=== PATIENT | female | born 1960 | race Two or more races ===

== ENCOUNTER → 2022-06-13 | Outpatient (CLI) | payer MEDICARE, OTHER ==
[2022-06-13 11:20] LABS: Basophils # (auto) 0 10 ^3/uL (0-0.2); Basophils % (auto) 0.7 % (0.0-2.0); Eosinophils # (auto) 0.1 10 ^3/uL (0-0.8); Hematocrit 40.8 % (36.0-46.0); Hemoglobin 12.6 g/dL (12.2-16.2); Lymphocytes # (auto) 1.8 10 ^3/uL (0.4-5.4); Mean Corpuscular Hemoglobin 28.6 pg (28.0-32.0); Mean Corpuscular Volume 92.2 fL (80.0-100.0); Monocytes # (auto) 0.7 10 ^3/uL (0-1.3); Monocytes % (auto) 9.5 % (0.0-12.0); Neutrophils # (auto) 4.4 10 ^3/uL (1.6-8.6); Neutrophils % (auto) 62.8 % (37.0-80.0); Nucleated Red Blood Cells % 0.1 %; Red Blood Cells 4.43 10^6/uL (4.0-5.20); Red Cell Distribution Width 12.8 % (11.8-14.3); White Blood Cell 6.9 10^3/uL (4.4-10.8)
[2022-06-13 11:35] LABS: Urine Bacteria FEW /hpf (None Seen); Urine Blood Negative /uL (Negative); Urine Specific Gravity 1.015 (1.001-1.035); Urine WBC 32 /hpf (0 - 5); Urine WBC Clumps PRESENT /hpf (None Seen)
[2022-06-13 11:53] LABS: Albumin 3.1 g/dL (3.4-5.0); Calcium 9.1 mg/dL (8.5-10.1); Potassium 4.3 mmol/L (3.5-5.1)
[2022-06-13 11:58] LABS: Bilirubin, Total 0.6 mg/dL (0.2-1.0); Total Protein 8.4 g/dL (6.4-8.2)
[2022-06-13 12:03] LABS: BUN/Creatinine Ratio 14.2
== END | disposition home or self-care (01) ==
LOC: LAB 10:42
PROVIDERS: ATTEND Internal Medicine
DX: Z12.11 Encounter for screening for malignant neoplasm of colon (principal); I10 Essential (primary) hypertension; E66.9 Obesity, unspecified
CPT/HCPCS: 36415; 80053; 80061; 81001; 83036; 85025

== ENCOUNTER → 2022-07-10 | Outpatient (CLI) | payer OTHER ==
[2022-07-10 10:42] LABS: Basophils # (auto) 0.1 10 ^3/uL (0-0.2); Basophils % (auto) 0.9 % (0.0-2.0); Eosinophils # (auto) 0.2 10 ^3/uL (0-0.8); Eosinophils % (auto) 2.7 % (0.0-7.0); Hematocrit 40.7 % (36.0-46.0); Hemoglobin 12.6 g/dL (12.2-16.2); Lymphocytes # (auto) 1.7 10 ^3/uL (0.4-5.4); Lymphocytes % (auto) 24.9 % (10.0-50.0); Mean Corpuscular Hemoglobin 28.8 pg (28.0-32.0); Mean Corpuscular Hgb Conc. 31.1 g/dL (32.0-36.0); Mean Corpuscular Volume 92.7 fL (80.0-100.0); Monocytes # (auto) 0.6 10 ^3/uL (0-1.3); Monocytes % (auto) 9.3 % (0.0-12.0); Neutrophils # (auto) 4.3 10 ^3/uL (1.6-8.6); Neutrophils % (auto) 62.2 % (37.0-80.0); Nucleated Red Blood Cells % 0.1 %; Red Blood Cells 4.39 10^6/uL (4.0-5.20); Red Cell Distribution Width 12.4 % (11.8-14.3); White Blood Cell 6.9 10^3/uL (4.4-10.8)
[2022-07-10 11:01] LABS: Calcium 9.2 mg/dL (8.5-10.1)
[2022-07-10 11:05] LABS: Albumin 3.3 g/dL (3.4-5.0); BUN/Creatinine Ratio 11.3; Bilirubin, Total 0.6 mg/dL (0.2-1.0); Total Protein 7.6 g/dL (6.4-8.2)
[2022-07-10 11:15] LABS: Partial Thromboplastin Time 27.1 sec (24.6-33.4)
[2022-07-10 12:15] LABS: Reticulocyte % (auto) 1.81 % (0.5-1.5)
== END | disposition home or self-care (01) ==
LOC: LAB 10:00
PROVIDERS: ATTEND Internal Medicine
DX: K92.2 Gastrointestinal hemorrhage, unspecified (principal); N39.0 Urinary tract infection, site not specified; M12.30 Palindromic rheumatism, unspecified site
CPT/HCPCS: 36415; 80053; 83880; 84443; 85025; 85045; 85610; 85730

== ENCOUNTER → 2023-04-08 | Outpatient (CLI) | payer OTHER ==
[~2023-04-08] MED LIST: ATEN-60 PO; TRIA75TA55 PO
[2023-04-08 15:32] LABS: Potassium 3.9 mmol/L (3.5-5.1)
[2023-04-08 15:38] LABS: BUN/Creatinine Ratio 13.9 (10.0-20.0); Calcium 8.9 mg/dL (8.5-10.1)
[2023-04-08 15:40] LABS: Bilirubin, Total 0.4 mg/dL (0.2-1.0)
== END | disposition home or self-care (01) ==
LOC: LAB 13:37
PROVIDERS: ATTEND Internal Medicine
DX: N18.30 Chronic kidney disease, stage 3 unspecified (principal)
CPT/HCPCS: 36415; 80053

== ENCOUNTER 2023-09-06 12:23 | Emergency (ER) | payer OTHER ==
[~2023-09-06] VITALS: Ht 162.6 cm; Wt 87.2 kg
[2023-09-06 15:36] VITALS: BP 153/94; PULSE 71; RESP 18; TEMP 97.8; O2SAT 99
[2023-09-06] MEDS ORDERED: HYDROcodone-ACET 5/325MG TAB PO ONE (15:45)
[2023-09-06] MEDS ORDERED: HYDR-4902 PO (16:50)
== END 2023-09-06 16:51 | disposition home or self-care (01) ==
LOC: ER 12:23
DX: S62.314A Displaced fracture of base of fourth metacarpal bone, right hand, initial encounter for closed fracture (principal); Z88.0 Allergy status to penicillin; Z88.6 Allergy status to analgesic agent; W18.09XA Striking against other object with subsequent fall, initial encounter; Y93.89 Activity, other specified; Y92.89 Other specified places as the place of occurrence of the external cause; Y99.8 Other external cause status
CPT/HCPCS: 29125; 73130

== ENCOUNTER → 2023-09-16 | Outpatient (CLI) | payer OTHER ==
[~2023-09-16] MED LIST changes: +HYDR-4902 PO
[2023-09-16 15:35] LABS: Basophils # (auto) 0 10 ^3/uL (0-0.2); Basophils % (auto) 0.5 % (0.0-2.0); Eosinophils # (auto) 0.2 10 ^3/uL (0-0.8); Eosinophils % (auto) 1.7 % (0.0-7.0); Hematocrit 40.4 % (36.0-46.0); Lymphocytes # (auto) 2.8 10 ^3/uL (0.4-5.4); Lymphocytes % (auto) 29.3 % (10.0-50.0); Mean Corpuscular Hemoglobin 29.3 pg (28.0-32.0); Mean Corpuscular Hgb Conc. 32.2 g/dL (32.0-36.0); Mean Corpuscular Volume 91.1 fL (80.0-100.0); Monocytes # (auto) 0.9 10 ^3/uL (0-1.3); Monocytes % (auto) 9.1 % (0.0-12.0); Neutrophils # (auto) 5.6 10 ^3/uL (1.6-8.6); Neutrophils % (auto) 59.4 % (37.0-80.0); Nucleated Red Blood Cells % 0.2 %; Red Blood Cells 4.43 10^6/uL (4.0-5.20); Red Cell Distribution Width 12.7 % (11.8-14.3); White Blood Cell 9.4 10^3/uL (4.4-10.8)
== END | disposition home or self-care (01) ==
LOC: LAB 15:13
PROVIDERS: ATTEND Internal Medicine
DX: R19.5 Other fecal abnormalities (principal)
CPT/HCPCS: 36415; 85025

== ENCOUNTER 2023-10-06 09:51 | Day surgery (SDC) | payer OTHER ==
[~2023-10-06] VITALS: Ht 162.6 cm; Wt 83.5 kg
[2023-10-06 07:35] LABS: Basophils # (auto) 0 10 ^3/uL (0-0.2); Basophils % (auto) 0.5 % (0.0-2.0); Eosinophils # (auto) 0.1 10 ^3/uL (0-0.8); Eosinophils % (auto) 2.5 % (0.0-7.0); Hematocrit 38.3 % (36.0-46.0); Hemoglobin 12.5 g/dL (12.2-16.2); Lymphocytes # (auto) 2.1 10 ^3/uL (0.4-5.4); Lymphocytes % (auto) 37.2 % (10.0-50.0); Mean Corpuscular Hemoglobin 29.9 pg (28.0-32.0); Mean Corpuscular Hgb Conc. 32.7 g/dL (32.0-36.0); Mean Corpuscular Volume 91.2 fL (80.0-100.0); Monocytes # (auto) 0.8 10 ^3/uL (0-1.3); Monocytes % (auto) 13.3 % (0.0-12.0); Neutrophils # (auto) 2.6 10 ^3/uL (1.6-8.6); Neutrophils % (auto) 46.5 % (37.0-80.0); Nucleated Red Blood Cells % 0.1 %; Red Blood Cells 4.19 10^6/uL (4.0-5.20); Red Cell Distribution Width 12.9 % (11.8-14.3); White Blood Cell 5.7 10^3/uL (4.4-10.8)
[2023-10-06 08:08] LABS: Alanine Aminotransferase 35 U/L (7-40); Albumin 3.6 g/dL (3.2-4.8); Alkaline Phosphatase 107 U/L (46-116); Anion Gap 9 (5-15); Aspartate Aminotransferase 36 U/L (13-40); BUN/Creatinine Ratio 10.5 (10.0-20.0); Bilirubin, Total 0.8 mg/dL (0.2-1.0); Blood Urea Nitrogen 11 mg/dL (9-23); Calcium 9.3 mg/dL (8.5-10.1); Carbon Dioxide 29 mmol/L (20-30); Chloride 100 mmol/L (98-107); Glucose 96 mg/dL (74-106); Potassium 2.9 mmol/L (3.5-5.1); Sodium 138 mmol/L (136-145); Total Protein 9.8 g/dL (5.7-8.2)
[2023-10-06 08:40] LABS: INR 1.01 (0.9-1.15); Partial Thromboplastin Time 24.2 SEC (24.5-34.5); Prothrombin Time 10.8 sec (9.3-11.8)
[~2023-10-06 09:51] MED LIST changes: +diphenhdrAMINE HCL 50 MG/1 ML VL ONE
[2023-10-06] MEDS ORDERED: SOD CHL 0.9%/ KCL 20MEQ 1,000 ML IV SCH (11:00)
[2023-10-06] MEDS ORDERED: POTASSIUM CHLORIDE 20 MEQ, LIDOCAINE 1% (LOCAL ANESTH.) 2 ML in SODIUM CHL 0.9% 100 ML IV ONE (11:00)
[2023-10-06 11:48] VITALS: PULSE 82; RESP 15; O2SAT 100
[2023-10-06] MEDS ORDERED: MIDAZOLAM HCL 5 MG/ML-1ML VIAL IV ONE ×4 (11:51→12:07)
[2023-10-06] MEDS ORDERED: diphenhdrAMINE HCL 50 MG/1 ML VL IV ONE ×2 (11:51→11:55)
[2023-10-06] MEDS ORDERED: fentaNYL CITRATE 100 MCG/2 ML VL IV ONE ×3 (11:51→12:00)
[2023-10-06 12:18] VITALS: TEMP 98.3; O2SAT 100
[2023-10-06] MEDS ORDERED: MIDAZOLAM HCL 5 MG/ML-1ML VIAL ONE (13:40)
[2023-10-06] MEDS ORDERED: diphenhdrAMINE HCL 50 MG/1 ML VL ONE (13:40)
[2023-10-06] MEDS ORDERED: fentaNYL CITRATE 100 MCG/2 ML VL ONE (13:41)
[2023-10-06 15:03] VITALS: BP 166/89; PULSE 65; RESP 12; O2SAT 100
== END 2023-10-06 15:11 | disposition home or self-care (01) ==
LOC: GI 09:51
PROVIDERS: ATTEND Internal Medicine Gastroenterology
DX: R19.5 Other fecal abnormalities (principal); K92.1 Melena; K64.0 First degree hemorrhoids; Q43.8 Other specified congenital malformations of intestine; K66.0 Peritoneal adhesions (postprocedural) (postinfection); I10 Essential (primary) hypertension; Z86.010 Personal history of colon polyps; Z79.899 Other long term (current) drug therapy
CPT/HCPCS: 36415; 45378; 80053; 84132; 85025; 85610; 85730; J1200; J2001; J2250; J3010; J3480; J7030; 99152; 99153

== ENCOUNTER 2025-06-19 07:00 | Inpatient (IN) | payer MEDICARE, OTHER ==
[2025-06-16 10:01] LABS: Urine Protein, UAD Negative (Negative)
[2025-06-16 10:10] LABS: Hematocrit 34.1 % (36.0-46.0); Hemoglobin 11.4 g/dL (12.2-16.2); Mean Corpuscular Hemoglobin 33.5 pg (28.0-32.0); Mean Corpuscular Volume 100.6 fL (80.0-100.0); Nucleated Red Blood Cells % 0.2 %
[2025-06-16 10:11] LABS: INR 1.01 (0.9-1.15); Partial Thromboplastin Time 24.4 SEC (24.5-34.5); Prothrombin Time 10.7 sec (9.3-11.8)
[2025-06-16 10:28] LABS: Alanine Aminotransferase 18 U/L (7-40); Albumin 3.6 g/dL (3.2-4.8); Alkaline Phosphatase 103 U/L (46-116); Anion Gap 10 (5-15); BUN/Creatinine Ratio 9.8 (10.0-20.0); Bilirubin, Total 0.8 mg/dL (0.2-1.0); Blood Urea Nitrogen 12 mg/dL (9-23); Calcium 8.9 mg/dL (8.7-10.4); Carbon Dioxide 23 mmol/L (20-31); Chloride 99 mmol/L (98-107); Glucose 86 mg/dL (74-106)
[2025-06-16 10:41] LABS: Potassium 3.4 mmol/L (3.5-5.1); Sodium 132 mmol/L (136-145); Total Protein 10.2 g/dL (5.7-8.2)
[~2025-06-19] VITALS: Ht 162.6 cm; Wt 80.0 kg
[~2025-06-19 07:00] MED LIST changes: -HYDR-4902 PO; +PANT40TA2 PO; +TRAM50TA2 PO; -diphenhdrAMINE HCL 50 MG/1 ML VL ONE
[2025-06-19] MEDS: ACETAMINOPHEN IV 1000 MG/100ML (10MG/ML) IV ONE (09:00)
[2025-06-19] MEDS ORDERED: HYDROmorphone HCL 2 MG/ML VL/or syr IV PRN ×2 (09:30→10:15)
[2025-06-19] MEDS ORDERED: MORPHINE SULFATE 4 MG/ML SYR/VIAL IV PRN (09:30)
[2025-06-19] MEDS: PREGABALIN CAPSULE 75 MG CAP PO ONE (09:45)
[2025-06-19] MEDS: CELECOXIB 100 MG CAP PO ONE (09:45)
[2025-06-19] MEDS: ceFAZolin 1GM/50ML 50 ML IV SCH ×2 (09:58→18:38)
[2025-06-19] MEDS: CEFEPIME 1GM/50ML 50 ML IV ONE (10:03)
[2025-06-19] MEDS: TRANEXAMIC ACID 20 ML ONE (10:10)
[2025-06-19] MEDS ORDERED: MORPHINE SULFATE INJ 2 MG/ml SYRG IV PRN ×2 (10:11→12:00)
[2025-06-19] MEDS: LACTATED RINGER'S 1,000 ML IV SCH (10:15)
[2025-06-19] MEDS ORDERED: ONDANSETRON HCL 4 MG/2 ML VIAL IV PRN (10:15)
[2025-06-19] MEDS: BUPIVACAINE W/ EPINEPH 0.5% INJ 50ML MDV IJ ONE (10:51)
[2025-06-19] MEDS: KETOROLAC TROMETH 30 MG/ML 1ML VIAL IV ONE (10:51)
[2025-06-19] MEDS: MORPHINE SULF PF 5 MG/10 ML VIAL IV ONE (10:52)
[2025-06-19 11:42] VITALS: PULSE 80; RESP 15; O2SAT 98
[2025-06-19] MEDS ORDERED: NITROGLYCERIN 0.4 MG SL TAB SL PRN (12:00)
--- NOTE | 2025-06-19 12:19 | DVHOP2 ---
Operative Report - 2 Report Details Date: 06/19/25 Preop Diagnosis: Left hip avascular necrosis Postop Diagnosis: Left hip avascular necrosis Surgeon: Flako Richmond MD Software Lead: Chaka MURILLO Anesthesiologist: Zafar ORTIZ Anesthesia: Regional Implant: [employer] see implant log Consent: The patient was informed of the risks and benefits of the procedure. These include but are not limited to complications of anesthesia, postoperative infection, incomplete relief of symptoms, recurrence of symptoms, damage to blood vessels, nerves and tendons, deep venous thrombosis, pulmonary embolism and possible need for repeat surgery in the future. Estimated Blood Loss: 300 cc Name of Procedure Performed Left total hip arthroplasty, computer navigation Procedure Details Procedure Details: FINDINGS: Extensive degenerative disease with grade IV changes INDICATION: This patient has failed non-operative treatments for hip arthritis and is now indicated for a total hip replacement. Preoperatively in the waiting area as well as in the office, I had a long discussion with the patient regarding the plan, the expected outcome, the risks, benefits, and alternatives of surgery. The risks include, but are not limited to, infection (which may require future surgery and removal of implants) , bleeding (which may require a transfusion), damage to nerves, arteries, veins, tendons, muscles and other adjacent structures. Also discussed the possibilities of dislocation, leg-length discrepancy, intraoperative fractures, implant loosening, heterotopic bone formation, and revision for variety of reasons, and medical complications etc. This was discussed at length and consent has been obtained. DESCRIPTION OF PROCEDURE: In the preoperative holding area, the consent was reviewed and the appropriate extremity was verified by the patient and marked with my initials. The patient was then transferred to the operating theatre. Appropriate anesthetia was induced. All bony prominences were well padded. A time out was performed verifying the side and site of surgery according to standard protocol. Preoperative antibiotics were given. Tranexamic acid was given. The patient was then placed in the lateral decubitus position and fixed with rigid pelvic fixation. All bony prominences were well padded and an axillary roll was placed. The affected hip area was then prepped and draped in the usual sterile fashion. Using an 11-blade, three stab incisions were made over the iliac crest. Two threaded guide pins were inserted into the crest confirming to be in bone. The pelvic array was attached to the pins and tightened. We made a standard posterolateral incision sharply through the skin and carried our dissection down through subcutaneous tissue to the underlying fascia achieving hemostasis where necessary. We incised the fascia in line with our incision. We identified and protected the sciatic nerve. We took down the external rotators and hip capsule from their insertion into the greater troch anter, tagged them and retracted them posteriorly for further protection of the sciatic nerve. A check point was placed into the greater trochanter and the hip center and leg length length were registered. We then dislocated the femoral head and performed an osteotomy of the femoral neck in accordance with our pre-operative plan. The labrum was excised with a long-handle knife, and we exposed the acetabular rim and cotyloid fossa. We then reamed up to our final size in accordance with the preoperative plan. We copiously irrigated and then impacted the final cup into position. We confirmed the position with the robotic navigation guidance. We placed acetabular dome screws into the posterior-superior quadrant in the usual fashion. We irrigated the cup and impacted the liner, checking to make sure it was well seated. Attention was then turned to the femur. We used a box osteotome followed by a canal finder to gain entry to the canal. Intramedullary contents were suctioned and care was taken to ensure they did not touch the tissues. We sequentially reamed until good cortical contact, then broached up to out final size. We t rialed with the appropriate femoral neck and head and reduced the hip. The hip was taken through a full range of motion. The hip soft tissues were examined in extension and external rotation, the anterior capsule and IT band were palpated, and combined anteversion was determined to be 40 degrees. The hip was stable at maximum flexion, at 90 degrees of flexion and 45 degrees of internal rotation and the position of sleep. Leg lengths were restored as shown using the computer navigation, and the trial LTC matched preoperative and intraoperative templating. The hip was then dislocated and trial components removed. We copiously irri gated the wound and impacted the final femoral stem into position. The femoral head was impacted onto a clean and dry trunion and confirmed to be seated. The hip was reduced ensuring to tissues in the acetabular cup. We again brought it through a full functional range of motion and there was no evidence for dislocation, instability, or impingement. The checkpoint was removed. A dilute betadine solution (17.5mL in 500mL saline) was used to wash the joint and left to sit for 3 minutes. This was then irrigated out with copious amounts of pulse lavage. We sprinkled 1g vancomycin powder below the fascia and 1g above the fascia. We copiously irrigated the wound and soft tissues. The short external rotators and capsule were repaired to the greater trochanter through drill holes, and the quadratus was repaired. We palpated the sciatic nerve in continuity without tension. The fascia was closed with vicryl and a barbed suture. We closed over the fascia with vicryl suture and re-approximated the skin with {Sutures/claudette:02220}. A sterile dressing was placed. We returned the patient to the supine position. We verified all lower extremity compartments were soft and compressible and that we had intact distal pulses and checked our leg length alevism. We took an AP Pelvis in the operating room, which we reviewed prior to transfer. The patient was then transferred to the recovery room in stable condition. Condition Good Disposition Still a Patient FLAKO RICHMOND MD Jun 19, 2025 12:19
--- NOTE | 2025-06-19 12:23 | DVHINCON2 ---
Date Seen: Jun 19, [address] RICHMOND Allergies: Coded Allergies: Penicillins (Unverified Allergy, Intermediate, rash, swollen lip, 01/29/23) Aspirin (Unverified Adverse Reaction, Mild, N/V, 01/29/23) Ibuprofen (Unverified Adverse Reaction, Mild, N/V, abd pain, 01/29/23) Home Meds Reported Medications Pantoprazole Sodium Sesquihydr (Protonix) 40 Mg Tab, 40 MG PO DAILY, #30 TAB 06/14/25 Tramadol Hcl (Tramadol Hcl) 50 Mg Tab, 50 MG PO Q6HP PRN for prn, TAB 06/14/25 Triamterene & Hydrochlorothiaz (Maxzide) 1 Tab Tab, 1 TAB PO DAILY, TAB 01/29/23 Atenolol (Atenolol) 25 Mg Tab, 50 MG PO BID, TAB 01/29/23 Current Medications Current Medications Medications (Trade) Dose Ordered Sig/Chiki Route PRN Reason Start Time Stop Time Status Last Admin Metoclopramide HCl (Reglan Injection) 10 mg ONCE PRN IV NAUSEA / VOMITING 06/19/25 09:30 06/19/25 10:02 DC Hydromorphone HCl (Dilaudid Injection) 0.5 mg Q10M PRN IV SEVERE PAIN (7-10 PAIN SCALE) 06/19/25 09:30 06/19/25 10:11 DC Morphine Sulfate 2 mg Q4H PRN IV BREAKTHRU PAIN SCALE 7-10 06/19/25 09:30 06/19/25 13:31 Hydromorphone HCl (Dilaudid Injection) 0.25 mg Q10M PRN IV MODERATE PAIN (4-6 PAIN SCALE) 06/19/25 09:30 06/19/25 10:02 DC Morphine Sulfate 1 mg Q30M PRN IV SEVERE PAIN (7-10 PAIN SCALE) 06/19/25 10:11 06/19/25 12:12 DC Atenolol (Tenormin Tablet) 50 mg BID PO 06/19/25 22:00 Pantoprazole Sodium (Protonix Tablet) 40 mg DAILY PO 06/20/25 10:00 Triamterene/HCTZ (Dyazide 37.5/ 25MG Capsule) 1 cap DAILY PO 06/20/25 10:00 Lactated Ringer's 1,000 ml @ 100 mls/hr Q10H IV 06/19/25 10:15 Sodium Chloride (Saline Lock Ns) 10 ml Q8HR IV 06/19/25 14:00 Cefazolin Sodium 50 ml @ 50 mls/hr Q6H IV 06/19/25 10:15 06/19/25 11:48 DC 06/19/25 09:58 Acetaminophen/ Hydrocodone Bitart ([place] 5/325MG Tab) 1 tab Q4HP PRN PO MODERATE PAIN (4-6 PAIN SCALE) 06/19/25 10:15 Hydromorphone HCl (Dilaudid Injection) 1 mg Q2HP PRN IV SEVERE PAIN (7-10 PAIN SCALE) 06/19/25 10:15 Ondansetron HCl (Zofran) 4 mg Q6HP PRN IV NAUSEA / VOMITING 06/19/25 10:15 Docusate Sodium (Colace Capsule) 100 mg Q12HR PO 06/19/25 22:00 Cefepime HCl 50 ml @ 12.5 mls/hr DAILY IV 06/20/25 10:00 Cefazolin Sodium 50 ml @ 50 mls/hr Q8H IV 06/19/25 18:00 06/20/25 02:59 Nitroglycerin (Ntrostat Sublingual) 0.4 mg Q5MINP PRN SL FOR CHEST PAIN 06/19/25 12:00 UNV Morphine Sulfate 2 mg Q30M PRN IV FOR CHEST PAIN 06/19/25 12:00 UNV Vital Signs Vital Signs Date Time Temp Pulse Resp B/P (MAP) Pulse Ox O2 Delivery O2 Flow Rate FiO2 06/19/25 07:19 97.7 88 20 144/94 (111) 100 97.7 Labs/Diagnostic Data Labs Test 06/16/25 08:35 Range/Units White Blood Count 5.9 4.4-10.8 10^3/uL Red Blood Count 3.39 L 4.0-5.20 10^6/uL Hemoglobin 11.4 L 12.2-16.2 g/dL Hematocrit 34.1 L 36.0-46.0 % Mean Corpuscular Volume 100.6 H 80.0-100.0 fL Mean Corpuscular Hemoglobin 33.5 H 28.0-32.0 pg Mean Corpuscular Hemoglobin Concent 33.3 32.0-36.0 g/dL Red Cell Distribution Width 16.7 H 11.8-14.3 % Platelet Count 250 140-450 10^3/uL Mean Platelet Volume 8.0 6.9-10.8 fL Neutrophils (%) (Auto) 69.2 37.0-80.0 % Lymphocytes (%) (Auto) 20.0 10.0-50.0 % Monocytes (%) (Auto) 8.4 0.0-12.0 % Eosinophils (%) (Auto) 2.0 0.0-7.0 % Basophils (%) (Auto) 0.4 0.0-2.0 % Neutrophils # (Auto) 4.1 1.6-8.6 10 ^3/uL Lymphocytes # (Auto) 1.2 0.4-5.4 10 ^3/uL Monocytes # (Auto) 0.5 0-1.3 10 ^3/uL Eosinophils # (Auto) 0.1 0-0.8 10 ^3/uL Basophils # (Auto) 0 0-0.2 10 ^3/uL Nucleated Red Blood Cells 0.2 % Prothrombin Time 10.7 9.3-11.8 sec Prothrombin Time INR 1.01 0.9-1.15 Activated Partial Thromboplast Time 24.4 L 24.5-34.5 SEC Urine Color Light-yellow Yellow Urine Clarity Clear Clear Urine pH 5.5 5.0-9.0 Urine Specific [place] 1.011 1.001-1.035 Urine Protein Negative Negative Urine Ketones Negative Negative Urine Blood Negative Negative /uL Urine Nitrite Negative Negative Urine Bilirubin Negative Negative Urine Urobilinogen Normal Negative mg/dL Urine Leukocyte Esterase Negative Negative /uL Urine RBC 1 0 - 4 /hpf Urine Microscopic WBC 1 0-5 /HPF Urine Squamous Epithelial Cells Few <5 /hpf Urine Bacteria None seen None Seen /hpf Urine Glucose Normal Normal mg/dL Sodium Level 132 L 136-145 mmol/L Potassium Level 3.4 L 3.5-5.1 mmol/L Chloride Level 99 98-107 mmol/L Carbon Dioxide Level 23 20-31 mmol/L Anion Gap 10 5-15 Blood Urea Nitrogen 12 9-23 mg/dL Creatinine 1.22 H 0.550-1.02 mg/dL Glomerular Filtration Rate Calc 50 >90 mL/min BUN/Creatinine Ratio 9.8 L 10.0-20.0 Serum Glucose 86 74-106 mg/dL Calcium Level 8.9 8.7-10.4 mg/dL Total Bilirubin 0.8 0.2-1.0 mg/dL Aspartate Amino Transferase (AST) 32 13-40 U/L Alanine Aminotransferase (ALT) 18 7-40 U/L Alkaline Phosphatase 103 46-116 U/L Total Protein 10.2 H 5.7-8.2 g/dL Albumin 3.6 3.2-4.8 g/dL Assessment SEE DICTATED NOTE Plan discussed with: Patient Date of Service: Jun 19, 2025 Billing Provider: GEOVANI GONZALEZ MD Common Visit Codes: [id number] INP/OBS CARE (HIGH) Secondary Visit Codes: [id number] CARE PLAN 30 MINUTES GEOVANI GONZALEZ MD Jun 19, 2025 12:23
--- NOTE | 2025-06-19 13:40 | DVH ---
EXAM: XY PELVIS AP CLINICAL INDICATION: sp Left CHASE TECHNIQUE: XY PELVIS AP Comparison: XY L HIP COMPLETE XRAY on DOS: 11/04/24 FINDINGS/IMPRESSION: There is no evidence of acute fracture or dislocation. Left total hip arthroplasty expected postsurgical changes The alignment is anatomical. There is no radiopaque foreign body.
[2025-06-19] MEDS: METOCLOPRAMIDE HCL 5MG/ml INJ 2ml VIAL IV PRN (13:58)
[2025-06-19] MEDS: HYDROmorphone HCL 2 MG/ML VL/or syr IV PRN (13:59)
[2025-06-19] MEDS: SODIUM CHLOR 0.9% PF (SALINE LOCK) 10ML VIAL/SYR IV SCH (14:01)
--- NOTE | 2025-06-19 17:11 | DVHINCON2 ---
DATE OF CONSULTATION: 06/19/2025 INTERNAL MEDICINE CONSULT HISTORY OF PRESENT ILLNESS: The patient is a 65-year-old lady who was admitted after she underwent surgery on the left hip for DJD of the hip. The patient at this time denies any significant hip pain. No chest pain. No shortness of breath. No nausea or vomiting. REVIEW OF SYSTEMS: Review of rest systems otherwise currently negative. PAST MEDICAL HISTORY: Significant for hypertension and chronic kidney disease. MEDICATIONS: She takes atenolol and as well as Protonix and tramadol. ALLERGIES: ASPIRIN, IBUPROFEN, AND PENICILLIN. SOCIAL HISTORY: Denies smoking and alcohol. Lives alone. FAMILY HISTORY: Negative. PHYSICAL EXAMINATION: GENERAL: The patient is awake and alert. VITAL SIGNS: Temperature of 97.7, pulse 88 per minute, blood pressure 144/94. SHEENT: Unremarkable. There is no JVD. No pedal edema. LUNGS: Equal bilaterally. No added sounds. CARDIOVASCULAR: S1, S2 is regular without murmurs. ABDOMEN: Soft. There is no organomegaly. NEUROLOGIC: Nonfocal. MUSCULOSKELETAL: There is a dressing at the site of left hip surgery. ASSESSMENT AND PLAN: * Hypertension for which the patient will continue on atenolol and . * CKD stage III. * Status post left hip surgery for DJD of the hip. The patient will be placed on pain medications and receive physical therapy. * Advance care planning: The patient is full code-Time spent was 19 minutes. MD WILMER Velez/ANEL/HARSHA TID: [id number] RECEIPT: [id number] [facility] HOSPITALAng[facility]lica
[2025-06-19 21:00] VITALS: BP 112/70; PULSE 17; RESP 81; TEMP 98.9; O2SAT 98
[2025-06-19] MEDS: DOCUSATE SOD 100 MG CAP PO SCH (21:51)
[2025-06-19] MEDS: HYDROcodone-ACET 5/325MG TAB PO PRN (21:52)
[2025-06-19] MEDS ORDERED: ATENOLOL 25 MG TAB PO SCH (22:00)
[2025-06-19 22:55] VITALS: BP 112/70; PULSE 17; RESP 81; TEMP 98.9; O2SAT 97
[2025-06-20 01:00] VITALS: BP 149/82; PULSE 74; RESP 16; TEMP 98.5; O2SAT 97
[2025-06-20 05:00] VITALS: BP 103/60; PULSE 76; RESP 16; TEMP 98.3; O2SAT 96
[2025-06-20 08:00] VITALS: BP 120/67; PULSE 74; RESP 18; TEMP 97.9; O2SAT 97
[2025-06-20 08:37] LABS: Hemoglobin 8.9 g/dL (12.2-16.2); Mean Corpuscular Volume 101.9 fL (80.0-100.0)
[2025-06-20 08:41] LABS: Hematocrit 26.3 % (36.0-46.0); Mean Corpuscular Hemoglobin 34.6 pg (28.0-32.0); Nucleated Red Blood Cells % 0.2 %
[2025-06-20 08:55] LABS: Alanine Aminotransferase 14 U/L (7-40); Alkaline Phosphatase 72 U/L (46-116); Anion Gap 10 (5-15); BUN/Creatinine Ratio 15.3 (10.0-20.0); Carbon Dioxide 23 mmol/L (20-31); Chloride 105 mmol/L (98-107); Glucose 101 mg/dL (74-106); Sodium 138 mmol/L (136-145)
[2025-06-20 08:57] LABS: Bilirubin, Total 0.6 mg/dL (0.2-1.0)
[2025-06-20 08:58] LABS: Albumin 3.2 g/dL (3.2-4.8); Blood Urea Nitrogen 27 mg/dL (9-23); Calcium 8.1 mg/dL (8.7-10.4); Potassium 2.9 mmol/L (3.5-5.1); Total Protein 8.6 g/dL (5.7-8.2)
--- NOTE | 2025-06-20 09:59 | DVHPN2 ---
Progress Note Date Seen: Jun 20, 2025 Medical Necessity Reason Pt with a Central, PICC or Fol: No Subjective Patient reports: No new complaints Review of Systems: HEENT:Normal, CVS:Normal, RESPIRATORY:Normal, GI:Normal, :Normal, MSK:Normal, NEURO:Normal Objective vital signs Vital Sign Date Time Temp Pulse Resp B/P (MAP) Pulse Ox O2 Delivery O2 Flow Rate FiO2 06/20/25 08:00 97.9 74 18 120/67 (84) 97 97.9 06/19/25 20:00 Room Air* 0 21 Total Intake and Output 06/19/25 06/19/25 06/20/25 15:00 23:00 07:00 Intake Total 220 ml 300 ml Balance 220 ml 300 ml medications Current Medications Medications Dose Ordered Sig/Chiki Route Start Time Stop Time Status Last Admin Dose Admin Pantoprazole Sodium 40 mg DAILY PO 06/20/25 10:00 Triamterene/HCTZ 1 cap DAILY PO 06/20/25 10:00 Lactated Ringer's 1,000 ml @ 100 mls/hr Q10H IV 06/19/25 10:15 Sodium Chloride 10 ml Q8HR IV 06/19/25 14:00 06/20/25 06:29 10 ML Acetaminophen/ Hydrocodone Bitart 1 tab Q4HP PRN PO 06/19/25 10:15 06/20/25 06:30 1 TAB Hydromorphone HCl 1 mg Q2HP PRN IV 06/19/25 10:15 Ondansetron HCl 4 mg Q6HP PRN IV 06/19/25 10:15 Docusate Sodium 100 mg Q12HR PO 06/19/25 22:00 06/19/25 21:51 100 MG Cefepime HCl 50 ml @ 12.5 mls/hr DAILY IV 06/20/25 10:00 Nitroglycerin 0.4 mg Q5MINP PRN SL 06/19/25 12:00 Morphine Sulfate 2 mg Q30M PRN IV 06/19/25 12:00 Atenolol 50 mg DAILY PO 06/20/25 10:00 Examination: GENERAL:Normal, HEENT:Normal, NECK:Normal, LUNGS:Normal, CVS:Normal, ABDOMEN:Normal, MSK:Normal, MSK:Abnormal (left hip dressing), SKIN:Normal, NEURO:Normal, :Normal laboratory and microbiology Laboratory Tests 06/20/25 07:28 Test 06/20/25 07:28 Range/Units Serum Glucose 101 74-106 mg/dL Problem List/Assessment/Plan Problem List/Assessment/Plan * Hypertension: hold meds * CKD stage III. * hypokalemia: replace * anemia: monitor * Status post left hip surgery for DJD of the hip. The patient will be placed on pain medications and receive physical therapy. * Advance care planning: The patient is full code-Time spent was 19 minutes. Plan discussed with: Patient, Daughter My Orders My Orders Orders - GEOVANI GONZALEZ MD Procedure Category Date Status Time Admit ADMIT 06/19/25 Transmitted 11:58 Oxygen By Nasal RT 06/19/25 Transmitted Cannula 11:58 Nitroglycerin PHA 06/19/25 In Process Sublingual (Ntrostat 12:00 Morphine Sulfate PHA 06/19/25 In Process Injection 12:00 Stat Ekg For Chest MAXIMILIANO 06/19/25 In Process Pain 11:58 Notify Md Of Changes MAXIMILIANO 06/19/25 In Process From Base 11:58 Emergency Dysrhythmia [facility] 06/19/25 In Process Protocol 11:58 Atenolol Tablet PHA 06/20/25 In Process (Tenormin Tablet) 10:00 Hydromorphone PHA 06/20/25 Transmitted Injection (Dilaudid 10:00 Potassium Er Tablet PHA 06/20/25 Transmitted (Klor-Con Tablet) 10:00 Basic Metabolic Panel LAB 06/21/25 Verified 06:00 Complete Blood Count LAB 06/21/25 Verified 06:00 * Concession Worker CONS 06/20/25 Transmitted Consult Date of Service: Jun 20, 2025 Billing Provider: GEOVANI GONZALEZ MD Common Visit Codes: [id number] INP/OBS CARE(HIGH) Secondary Visit Codes: [id number] CARE PLAN 30 MINUTES GEOVANI GONZALEZ MD Jun 20, 2025 09:59
[2025-06-20] MEDS ORDERED: TRIAMTERENE/HCTZ 37.5/25 MG CAP/TAB PO SCH (10:00)
[2025-06-20] MEDS ORDERED: ATENOLOL 25 MG TAB PO SCH (10:00)
[2025-06-20] MEDS: PANTOPRAZOLE 40 MG TAB PO SCH (10:02)
[2025-06-20] MEDS: CEFEPIME 1GM/50ML 50 ML IV SCH (10:03)
[2025-06-20] MEDS: METOCLOPRAMIDE HCL 5MG/ml INJ 2ml VIAL ONE (10:04)
[2025-06-20] MEDS: ROPIVACAINE 0.5% (5MG/ML) 20ML AMPULE IJ ONE (10:04)
[2025-06-20] MEDS: CELECOXIB 100 MG CAP ONE ×2 (10:04→10:05)
[2025-06-20] MEDS: HYDROmorphone HCL 2 MG/ML VL/or syr ONE (10:04)
[2025-06-20] MEDS: POTASSIUM CHL 20 Meq TABLET PO ONE (11:15)
[2025-06-20 13:00] VITALS: BP 111/48; PULSE 84; RESP 20; TEMP 97.7; O2SAT 98
[2025-06-20] MEDS: HYDROmorphone HCL 2 MG/ML VL/or syr IV PRN (14:08)
[2025-06-20] MEDS ORDERED: MIDAZOLAM HCL 2MG/2ML 2ml VIAL (1mg/ml) IV ONE (15:11)
[2025-06-20] MEDS ORDERED: FENTANYL 100mcg/2mL SYRINGE IV ONE (15:17)
[2025-06-20 17:00] VITALS: BP 95/54; PULSE 92; RESP 18; TEMP 98.3; O2SAT 95
[2025-06-20 21:00] VITALS: BP 106/71; PULSE 96; RESP 16; TEMP 98.7; O2SAT 95
[2025-06-21] VITALS (8 sets, daily range): BP systolic 96–106; BP diastolic 54–65; PULSE 47–108; RESP 17–19; TEMP 36.7; O2SAT 96–100
--- NOTE | 2025-06-21 07:40 | DVHPN2 ---
Progress Note Date Seen: Jun 21, 2025 Medical Necessity Reason Pt with a Central, PICC or Fol: No Subjective Patient reports: No new complaints Objective vital signs Vital Sign Date Time Temp Pulse Resp B/P (MAP) Pulse Ox O2 Delivery O2 Flow Rate FiO2 06/21/25 05:00 98.3 47 19 103/64 (77) 100 98.3 06/20/25 20:00 Room Air* 0 21 Total Intake and Output 06/20/25 06/20/25 06/21/25 15:00 23:00 07:00 Intake Total 770 ml 386 ml Output Total 400 ml Balance 370 ml 386 ml medications Current Medications Medications Dose Ordered Sig/Chiki Route Start Time Stop Time Status Last Admin Dose Admin Pantoprazole Sodium 40 mg DAILY PO 06/20/25 10:00 06/20/25 10:02 40 MG Lactated Ringer's 1,000 ml @ 100 mls/hr Q10H IV 06/19/25 10:15 Sodium Chloride 10 ml Q8HR IV 06/19/25 14:00 06/21/25 05:27 10 ML Acetaminophen/ Hydrocodone Bitart 1 tab Q4HP PRN PO 06/19/25 10:15 06/21/25 05:27 1 TAB Ondansetron HCl 4 mg Q6HP PRN IV 06/19/25 10:15 Docusate Sodium 100 mg Q12HR PO 06/19/25 22:00 06/20/25 21:21 100 MG Cefepime HCl 50 ml @ 12.5 mls/hr DAILY IV 06/20/25 10:00 06/20/25 10:03 12.5 MLS/HR Nitroglycerin 0.4 mg Q5MINP PRN SL 06/19/25 12:00 Morphine Sulfate 2 mg Q30M PRN IV 06/19/25 12:00 Hydromorphone HCl 1 mg Q3HP PRN IV 06/20/25 10:00 06/20/25 14:08 1 MG Examination: GENERAL:Normal, MSK:Abnormal laboratory and microbiology Test 06/21/25 06:18 Range/Units Serum Glucose Pending Problem List/Assessment/Plan Problem List/Assessment/Plan 65 year old female who is s/p left CHASE POD 2 1. Pain control 2. Prescriptions for oxycodone, lovenox and colace sent electronically via office EMR to patients preferred [facility] pharmacy 3. follow up in 2 weeks as scheduled at [facility] ortho clinic 4. WBAT with posterior hip precautions 5. Physical therapy 6. clear for discharge from orthopedic standpoint with the following discharge recommendations: POSTOPERATIVE Posterior Total Hip INSTRUCTIONS Activity: 1. You can bear as much weight as you tolerate on your hip unless specifically instructed otherwise. You may use the walking aid which you were discharged with and switch to a cane whenever you feel comfortable doing so. You should use an assistive device until you can walk comfortably without it. Keep in mind that every patient moves at their own speed of recovery so take your time. 2. A physical therapist will visit you at home. 3. Although guarantees against a dislocation do not exist, the hip was noted to be sufficiently stable in surgery. Below are motions that you should dischargenot do for 4-6 weeks, depending on the surgical approach used. If there are questions, please call the office. a. Bend forward past 90 degrees b. Sit on a regular low chair, couch, car seat etc... c. Cross your legs d. Use a regular low toilet seat. e. Sleep on your stomach or on either side. 3. High impact activity such as jumping, aerobics, tennis, and skiing are not permitted during the first 3 months after surgery. These activities can contribute to accelerated wear and should be done with caution after this time. Discuss this with your surgeon if you have questions. 4. Although a bath or whirlpool is NOT permitted during the first 2-3 weeks, you may shower as soon as you get home from the hospital provided you are able to keep your bandage clean and dry and there is no wound drainage. If you are unable to place a secured covering over your bandage bed bath/sponge bath may likely be the more appropriate option. 5. Swimming is not permitted until the wound is healed, which typically occurs approximately 3-4 weeks after surgery. Wound Management: If the wound is draining please change the gauze pad on the wound until it stops. If drainage persists past 10 days please notify our office. If there is a sticky gel dressing over your wound, you may leave this in place for as long as it is clean and dry. If it becomes loose or causes skin irritation, it is OK to remove it and place clean gauze over your wound. 1. You might notice some bruising around the surgical site, this is normal. 2. Check your temperature on a daily basis. Please note that a low-grade temp below 101 is not uncommon after surgery especially during the first 3 days. Notify the office if your temperature spikes above 101.5 after the 3rd post- operative date. 3. Many patients experience significant swelling in the thigh, this may extend below the knee and sometimes to the ankle. Swelling increases during the first week and subsides during the following week. 4. Provided you have been on a blood thinner since surgery and have been up and about at least three times per day, the risk of a blood clot is low and this swelling is an expected part of recovery. It will largely or completely resolve by your first post-operative visit. 5. Tressa, if present, will be removed at 2 weeks during initial post-op visit. Medications: 1. You will be discharged with pain medication, Aspirin as a blood thinner and sometimes an anti-inflammatory medication such as Celebrex or Mobic might be prescribed. Please follow the instructions regarding these medicines as provided by your nurse at the hospital. 2. Narcotic pain medication has side effects, including constipation. Please ensure you continue to take stool softeners (Colace, Senna) while taking your pain medication to help protect against constipation. Getting up and moving around at least a few times per day helps with this also. 3. Lovenox 40 Sq x 12 days followed by one regular strength 325 mg coated aspirin daily for 4 weeks after surgery. Then, take one baby aspirin, 81 mg daily for 6 weeks more. A major, yet preventable, complication of Orthopaedic Surgery is a blood clot (DVT). It is important not to miss any doses of this important medication. 4. You should restart all of your prescription medications once discharged unless specifically instructed otherwise. 5. Herbal supplements may be restarted 2 weeks after surgery. Miscellaneous issues: 1. Driving is not permitted within the first 2 weeks. 2. Your first postoperative visit will take place 2weeks after discharge. Please call the office to arrange this appointment. 3. Antibiotic preventative treatment is required before dental or other invasive procedures. Please ask your surgeon about this at your first postoperative visit. Your hip replacement contains metal which may activate metal detectors. You may wish to carry a letter from your surgeon to communicate this to security personnel. If you experience chest pain, shortness of breath or severe painful calf swelling, go to the nearest emergency room to be evaluated. Please call our office once your situation is stabilized. Plan discussed with: Patient Date of Service: Jun 21, 2025 Billing Provider: GONZALEZ RICHMOND MD Common Visit Codes: NOT BILLABLE REGINALDO MAYO NP Jun 21, 2025 07:40
[2025-06-21 07:53] LABS: Anion Gap 10 (5-15); Carbon Dioxide 22 mmol/L (20-31); Potassium 3.9 mmol/L (3.5-5.1); Sodium 140 mmol/L (136-145)
[2025-06-21 07:55] LABS: Calcium 8.9 mg/dL (8.7-10.4)
[2025-06-21 07:59] LABS: Chloride 108 mmol/L (98-107); Glucose 98 mg/dL (74-106)
[2025-06-21 08:00] LABS: BUN/Creatinine Ratio 16.2 (10.0-20.0); Blood Urea Nitrogen 25 mg/dL (9-23)
[2025-06-21 08:06] LABS: Hematocrit 27.0 % (36.0-46.0); Hemoglobin 9.0 g/dL (12.2-16.2); Mean Corpuscular Hemoglobin 34.1 pg (28.0-32.0); Mean Corpuscular Volume 102.7 fL (80.0-100.0); Nucleated Red Blood Cells % 0.2 %
--- NOTE | 2025-06-21 09:28 | DVHDS2 ---
Discharge Summary Date of Admission Jun 19, 2025 at 11:58 Date of Discharge: Jun 21, 2025 Labs/Diagnostic Data: Laboratory Results Test 06/21/25 06:18 06/20/25 07:28 06/16/25 08:35 White Blood Count 8.3 10^3/uL (4.4-10.8) Red Blood Count 2.63 10^6/uL (4.0-5.20) Hemoglobin 9.0 g/dL (12.2-16.2) Hematocrit 27.0 % (36.0-46.0) Mean Corpuscular Volume 102.7 fL (80.0-100.0) Mean Corpuscular Hemoglobin 34.1 pg (28.0-32.0) Mean Corpuscular Hemoglobin Concent 33.2 g/dL (32.0-36.0) Red Cell Distribution Width 16.1 % (11.8-14.3) Platelet Count 217 10^3/uL (140-450) Mean Platelet Volume 8.2 fL (6.9-10.8) Neutrophils (%) (Auto) 68.7 % (37.0-80.0) Lymphocytes (%) (Auto) 15.4 % (10.0-50.0) Monocytes (%) (Auto) 14.2 % (0.0-12.0) Eosinophils (%) (Auto) 1.3 % (0.0-7.0) Basophils (%) (Auto) 0.4 % (0.0-2.0) Neutrophils # (Auto) 5.7 10 ^3/uL (1.6-8.6) Lymphocytes # (Auto) 1.3 10 ^3/uL (0.4-5.4) Monocytes # (Auto) 1.2 10 ^3/uL (0-1.3) Eosinophils # (Auto) 0.1 10 ^3/uL (0-0.8) Basophils # (Auto) 0 10 ^3/uL (0-0.2) Nucleated Red Blood Cells 0.2 % Sodium Level 140 mmol/L (136-145) Potassium Level 3.9 mmol/L (3.5-5.1) Chloride Level 108 mmol/L (98-107) Carbon Dioxide Level 22 mmol/L (20-31) Anion Gap 10 (5-15) Blood Urea Nitrogen 25 mg/dL (9-23) Creatinine 1.54 mg/dL (0.550-1.02) Glomerular Filtration Rate Calc 37 mL/min (>90) BUN/Creatinine Ratio 16.2 (10.0-20.0) Serum Glucose 98 mg/dL (74-106) Calcium Level 8.9 mg/dL (8.7-10.4) Total Bilirubin 0.6 mg/dL (0.2-1.0) Aspartate Amino Transferase (AST) 34 U/L (13-40) Alanine Aminotransferase (ALT) 14 U/L (7-40) Alkaline Phosphatase 72 U/L (46-116) Total Protein 8.6 g/dL (5.7-8.2) Albumin 3.2 g/dL (3.2-4.8) Prothrombin Time 10.7 sec (9.3-11.8) Prothrombin Time INR 1.01 (0.9-1.15) Activated Partial Thromboplast Time 24.4 SEC (24.5-34.5) Urine Color Light-yellow (Yellow) Urine Clarity Clear (Clear) Urine pH 5.5 (5.0-9.0) Urine Specific [place] 1.011 (1.001-1.035) Urine Protein Negative (Negative) Urine Ketones Negative (Negative) Urine Blood Negative /uL (Negative) Urine Nitrite Negative (Negative) Urine Bilirubin Negative (Negative) Urine Urobilinogen Normal mg/dL (Negative) Urine Leukocyte Esterase Negative /uL (Negative) Urine RBC 1 /hpf (0 - 4) Urine Microscopic WBC 1 /HPF (0-5) Urine Squamous Epithelial Cells Few /hpf (<5) Urine Bacteria None seen /hpf (None Seen) Urine Glucose Normal mg/dL (Normal) Other Laboratory Tests 06/21/25 06:18 Brief Hx & Hospital Course: see dictated note Condition at Discharge: Good Final Diagnosis/Problems List Left hip SURGERY Discharge Disposition: Home Discharge Instruct/Medications Diet: Cardiac 2g Na,low cholest Activity: No Restrictions, As Tolerated Follow Up/Referral: fu with pcp/ortho Medications: resume home meds rest meds per ortho Scheduled Atenolol (Atenolol), 50 MG PO BID, (Reported) Pantoprazole Sodium Sesquihydr (Protonix), 40 MG PO DAILY, (Reported) Triamterene & Hydrochlorothiaz (Maxzide), 1 TAB PO DAILY, (Reported) Scheduled PRN Tramadol Hcl (Tramadol Hcl), 50 MG PO Q6HP PRN for prn, (Reported) Discharge Statement: "Patient was advised to return to the ER or call 911 if any headaches, dizziness, shortness of breath, chest pain, abdominal pain, bleeding, fevers, or worsening of medical condition. Patient was counseled about treatment plan, medications, possible side effects, patientverbalized understanding. All questions were answered to the best of my ability. This discharge took greater then 30 minutes in planning, reviewing documentation, counseling the patient, and discussing with other team members." ASSESSMENT ASSESSMENT Assessment Left hip SURGERY Date of Service: Jun 21, 2025 Billing Provider: GEOVANI GONZALEZ MD Common Visit Codes: 29876-[facility]/OBS DISCH DAY >30min GEOVANI GONZALEZ MD Jun 21, 2025 09:27
--- NOTE | 2025-06-21 09:53 | DVHDS ---
HISTORY OF PRESENT ILLNESS: The patient is a 65-year-old lady who was admitted after she underwent surgery on the left hip for DJD of the hip and has previous history of hypertension and chronic kidney disease. HOSPITAL COURSE: The patient did well postoperatively. Creatinine remained at about 1.2 to 1.7. Hemoglobin at the time of discharge is 9.0. The patient currently is doing well and has been ambulating with physical therapy. She will be discharged home to resume her home medications as well as to follow up with Orthopedics and Primary Care. The patient will be on the rest of the medications as per Orthopedics. The patient will also have home health for physical therapy. She will monitor her blood pressure at home. FINAL DIAGNOSES: * Hypertension. * Acute on chronic renal failure, questionable vasomotor nephropathy. * Obesity. * Status post left hip surgery for DJD of the hip. Time spent in discharge planning and review of plan with the patient and nursing was 37 minutes. MD WILMER Velez/HU TID: [id number] RECEIPT: [id number]
== END 2025-06-21 15:30 | disposition home or self-care (01) | DRG 469 ==
LOC: SUR 07:00 → OVERFLOW 11:58 → CENTRAL 17:44
PROVIDERS: ADMIT Internal Medicine; ATTEND Internal Medicine
PROC: 8E0YXBZ Computer Assisted Procedure of Lower Extremity (ICD-10-PCS; 2025-06-19)
PROC: 0SRB01Z Replacement of Left Hip Joint with Metal Synthetic Substitute, Open Approach (ICD-10-PCS; principal; 2025-06-19 09:55)
DX: M16.12 Unilateral primary osteoarthritis, left hip (principal); N17.0 Acute kidney failure with tubular necrosis; M87.852 Other osteonecrosis, left femur; N18.30 Chronic kidney disease, stage 3 unspecified; E66.9 Obesity, unspecified; I12.9 Hypertensive chronic kidney disease with stage 1 through stage 4 chronic kidney disease, or unspecified chronic kidney disease; E87.6 Hypokalemia; D64.9 Anemia, unspecified; Z79.899 Other long term (current) drug therapy; Z68.28 Body mass index [BMI] 28.0-28.9, adult; Z88.0 Allergy status to penicillin; Z88.6 Allergy status to analgesic agent; Z88.3 Allergy status to other anti-infective agents
CPT/HCPCS: 36415; 72170; 80048; 80053; 81001; 85025; 85610; 85730; 86850; 86900; 86901; 97110; 97116; 97163; 97530; G0378; J2250

== ENCOUNTER 2025-07-01 16:16 | Emergency (ER) | payer MEDICARE, OTHER ==
[~2025-07-01] VITALS: Ht 162.6 cm; Wt 79.1 kg
--- NOTE | 2025-07-01 17:35 | ED.PDOC ---
Musculoskeletal HPI Comments This is a 65-year-old female that is coming in who is status post hip surgery about two months ago. Now she is having a increased pain on the left side. She ran out of pain meds and went to the pharmacy but they are not able to get a refill at this time. No fever chills no nausea vomiting Chief Complaint: Lower Extremity Time Seen by MD: 17:25 Primary Care Provider: ANN MARIE Reviewed Notes: Nurses Notes, Waiter And Cashier Notes, Medications, Allergies Allergies: Coded Allergies: Penicillins (Unverified Allergy, Intermediate, rash, swollen lip, 01/29/23) Aspirin (Unverified Adverse Reaction, Mild, N/V, 01/29/23) Ibuprofen (Unverified Adverse Reaction, Mild, N/V, abd pain, 01/29/23) Uncoded Allergies: eggs (Allergy, Mild, pain , 06/19/25) Home Meds Reported Medications Pantoprazole Sodium Sesquihydr (Protonix) 40 Mg Tab, 40 MG PO DAILY, #30 TAB 06/14/25 Tramadol Hcl (Tramadol Hcl) 50 Mg Tab, 50 MG PO Q6HP PRN for prn, TAB 06/14/25 Triamterene & Hydrochlorothiaz (Maxzide) 1 Tab Tab, 1 TAB PO DAILY, TAB 01/29/23 Atenolol (Atenolol) 25 Mg Tab, 50 MG PO BID, TAB 01/29/23 Information Source: Patient, Relative Mode of Arrival: Ambulatory Past Medical History PAST MEDICAL HISTORY: Denies Surgical History: Denies all surgeries LETTUCE CUTTER History: No Pertinent LETTUCE CUTTER History Family History Family History: Reviewed,noncontributory to illness Social History Smoker: Non-Smoker Alcohol: Denies ETOH Use Drugs: Denies Drug Use Musculoskeletal: reports: joint pain, muscle pain, others (left hip) All Other Systems: Reviewed and Negative Physical Exam General Appearance: No Apparent Distress, Normal HEENT: Normal ENT Inspection, PERRL/EOMI, Pharynx Normal, TMs Normal Neck: Full Range of Motion, Non-Tender, Normal Inspection Respiratory: Lungs Clear, No Respiratory Distress, Normal Breath Sounds Cardiovascular: Regular Rate/Rhythm Breast Exam: Deferred Gastrointestinal: Non Tender, Normal Bowel Sounds, Soft Genitalia: Deferred Pelvic: Deferred Rectal: Deferred Extremities: Normal inspection, Normal range of motion, Non-tender Neurologic: Alert, Normal Affect, Normal Mood Cerebellar Function: NOT DONE Reflexes: NOT DONE Skin: Dry, Warm Lymphatic: No Adenopathy Was a procedure done? Was a procedure done?: No Differential Diagnosis EXT Differential Diagnosis: Cellulitis, Sprain X-Ray, Labs, Meds, VS Vital Signs Date Time Temp Pulse Resp B/P (MAP) Pulse Ox O2 Delivery O2 Flow Rate FiO2 07/01/25 16:23 97.9 73 18 134/77 98 97.9 X-Ray, Labs, Meds, VS Comment Patient seen and examined by me. Patient ran out of narcotic meds couple of days ago who is now having increased pain in her left leg. She is in therapy currently.. Patient is allergic to Motrin so I can not give her any Toradol but I will give her two [place] here, and then send her home on muscle relaxer. Talked to her about continuing Tylenol as well as heat alternating with ice on the next day or so till she sees her doctor on Thursday Time of 1ST Reevaluation: 17:40 Reevaluation 1ST: Improved Patient Education/Counseling: Diagnosis, Treatment, Prognosis, Need For Follow Up Family Education/Counseling: Treatment, Prognosis, Need For Follow Up Departure 1 Departure Time of Disposition: 17:40 Impression: Primary Impression: Hip pain Disposition: HOME / SELF CARE / HOMELESS Condition: Good Additional Instructions: Continue with Tylenol every 4 hours in the next couple of days he will see your regular doctor Use heat and ice to help with pain management as well Take the muscle relaxer as needed Follow up with your ortho on Thursday e-Prescriptions Cyclobenzaprine Hcl (Cyclobenzaprine Hcl) 10 Mg Tab 10 MG PO TID for 7 Days, #21 TAB Prov: EMERSON VARGAS 07/01/25 Discharged With: Self Critical Care Note Critical Care Time?: No Stability Stability form required: No EMERSON VARGAS Jul 01, 2025 17:35
[2025-07-01] MEDS ORDERED: CYCL-839 PO (17:42)
[2025-07-01] MEDS: HYDROcodone-ACET 10/325MG TAB PO ONE (17:48)
[2025-07-01 17:49] VITALS: BP 155/72; PULSE 90; RESP 20; TEMP 98.4; O2SAT 97
== END 2025-07-01 18:01 | disposition home or self-care (01) ==
LOC: ER 16:19
DX: M25.559 Pain in unspecified hip (principal); Z79.899 Other long term (current) drug therapy; Z88.0 Allergy status to penicillin; Z88.6 Allergy status to analgesic agent; Z91.012 Allergy to eggs